=== PATIENT | male | born 1950 | race Caucasian/White ===

== ENCOUNTER 2024-12-17 14:12 | Inpatient (IN) ==
[2024-12-17 14:55] LABS: Basophils # (Auto) 0.01 K/mcL (0.00-0.30); Basophils % (Auto) 0.1 % (0.0-2.0); Eosinophils # (Auto) 0 K/mcL (0.00-0.70); Eosinophils % (Auto) 0 % (0.0-7.0); Hematocrit 36.5 % (40.1-51.0); Hemoglobin 12.1 g/dL (13.7-17.5); Lymphocytes # (Auto) 0.86 K/mcL (1.50-4.80); Mean Cell Volume 96.6 fL (80.0-100.0); Mean Corpuscular HGB Conc 33.2 g/dL (31.0-36.0); Monocytes # (Auto) 1.23 K/mcL (0.10-0.90); Neutrophils % (Auto) 82.7 % (38.0-78.0); Platelet Count 189 K/mcL (140-440); RBC 3.78 M/mcL (4.63-6.08); Red Cell Distribution Width 12.9 % (11.5-14.5); WBC 12.3 K/mcL (4.5-11.0)
[2024-12-17 15:20] LABS: Blood Urea Nitrogen 30 mg/dL (8-23); Calcium 9.9 mg/dL (8.6-10.4); Carbon Dioxide 23 mmol/L (22-30); Chloride 96 mmol/L (96-108); Glomerular Filtration Rate 45; Glucose 156 mg/dL (70-105); Sodium 133 mmol/L (133-145)
[2024-12-17] MEDS: DEXAMETHASONE 10 MG/ML VIAL IV ONE (15:30)
[2024-12-17] MEDS: IPRATROPIUM/ALBUTEROL 3 ML AMPUL.NEB NEB ONE (15:36)
[2024-12-17] MEDS: cefTRIAXone 1 GM VIAL IV ONE (16:15)
[2024-12-17] MEDS: AZITHROMYCIN 500 MG in 0.9 % SODIUM CHLORIDE 250 ML IV ONE (16:15)
[2024-12-17 18:24] LABS: Appearance,Urine Clear (Clear); Bacteria,Urine 0 /hpf (0); Bilirubin,Urine Negative (Negative); Color,Urine Yellow; Glucose,Urine (UA) Negative (Negative); Ketones,Urine Negative (Negative); Leukocyte Esterase,Urine Small /uL (Negative); Nitrate,Urine Negative (Negative); PH,Urine 5.5 (5.0-9.0); Protein,Urine 30 mg/dL (Negative); Urine Blood Small ery/mcL (Negative); Urine Hyaline Cast 26 /lph (0-2); Urine RBC 10 /hpf (0-3); Urine Squamous Epithelial Cell 0 /hpf (0-4); Urine WBC 3 /hpf (0-4); Urobilinogen,Urine Normal
[2024-12-17] MEDS ORDERED: SENNOSIDES 1 TABLET PO PRN (19:16)
[2024-12-17] MEDS ORDERED: POLYETHYLENE GLYCOL 3350 17 GM PACKET PO PRN (19:16)
[2024-12-17] MEDS ORDERED: MAG HYDROX/AL HYDROX/SIMETH 30 ML ORAL.SUSP PO PRN (19:16)
[2024-12-17] MEDS ORDERED: ONDANSETRON 4 MG/2 ML VIAL IV PRN (19:16)
[2024-12-17] MEDS: IPRATROPIUM/ALBUTEROL 3 ML AMPUL.NEB NEB SCH (20:10)
[2024-12-17] MEDS: LACTATED RINGERS 1,000 ML IV SCH (20:32)
[2024-12-17] MEDS: ENOXAPARIN 40 MG/0.4 ML SYRINGE SQ SCH (20:32)
[2024-12-17] MEDS: MELATONIN 3 MG TABLET PO SCH (20:32)
[2024-12-17] MEDS: 0.9 % SODIUM CHLORIDE 10 ML SYRINGE IV SCH (20:33)
[2024-12-17] MEDS: DOXYCYCLINE 100 MG in DEXTROSE 5% IN WATER 100 ML IV SCH (20:33)
[2024-12-17] MEDS: REMDESIVIR 200 MG in 0.9 % SODIUM CHLORIDE 250 ML IV SCH (21:51)
[2024-12-18 06:20] LABS: Basophils # (Auto) 0 K/mcL (0.00-0.30); Basophils % (Auto) 0 % (0.0-2.0); Eosinophils # (Auto) 0 K/mcL (0.00-0.70); Eosinophils % (Auto) 0 % (0.0-7.0); Hematocrit 36.3 % (40.1-51.0); Lymphocytes # (Auto) 0.56 K/mcL (1.50-4.80); Mean Cell Volume 97.6 fL (80.0-100.0); Mean Corpuscular HGB Conc 33.1 g/dL (31.0-36.0); Mean Platelet Volume 10.4 fL (8.8-12.5); Monocytes % (Auto) 6.5 % (1.0-12.0); Neutrophils % (Auto) 87.4 % (38.0-78.0); Platelet Count 176 K/mcL (140-440); RBC 3.72 M/mcL (4.63-6.08); Red Cell Distribution Width 12.8 % (11.5-14.5); WBC 9.3 K/mcL (4.5-11.0)
[2024-12-18 06:56] LABS: ALT/SGPT 10 U/L (<40); AST/SGOT 14 U/L (<40); Albumin 3.4 gm/dL (3.2-5.2); Albumin/Globulin Ratio 1.2 (1.0-2.3); Alkaline Phosphatase 74 U/L (39-117); Bilirubin,Direct < 0.2 mg/dL (0-0.3); Bilirubin,Total 0.3 mg/dL (0.1-1.0); Blood Urea Nitrogen 28 mg/dL (8-23); Carbon Dioxide 23 mmol/L (22-30); Chloride 101 mmol/L (96-108); Globulin 2.9 gm/dL (2.2-3.7); Glomerular Filtration Rate 73; Glucose 151 mg/dL (70-105); Lactate Dehydrogenase 142 U/L (135-225); Potassium 3.9 mmol/L (3.3-5.1); Sodium 136 mmol/L (133-145); Triglycerides 66 mg/dL (<150); Uric Acid 4.9 mg/dL (2.5-8.0)
[2024-12-18] MEDS ORDERED: cefTRIAXone 1 GM VIAL IV SCH (09:00)
[2024-12-18] MEDS: DEXAMETHASONE 10 MG/ML VIAL IV SCH (10:11)
[2024-12-18] MEDS: cefTRIAXone 2 GM in DEXTROSE 5% IN WATER 50 ML IV SCH (11:59)
[2024-12-18] MEDS ORDERED: traZODone HCL 100 MG TABLET PO PRN (15:14)
[2024-12-18] MEDS: REMDESIVIR 100 MG in 0.9 % SODIUM CHLORIDE 250 ML IV SCH (15:41)
[2024-12-18] MEDS ORDERED: FAMOTIDINE 20 MG TABLET PO PRN (18:24)
[2024-12-18] MEDS ORDERED: HYDROcodone/APAP 5/325MG TABLET PO PRN (20:51)
[2024-12-18] MEDS: DORZOLAMIDE 2% OPHTH DROPS 10ML BOTTLE OU SCH (22:09)
[2024-12-18] MEDS: GABAPENTIN 300 MG CAPSULE PO SCH (22:09)
[2024-12-18] MEDS: DULoxetine 20 MG CAPSULE PO SCH (22:09)
[2024-12-19] MEDS: ACETAMINOPHEN 325 MG TABLET PO PRN (04:23)
[2024-12-19] MEDS: tiZANidine 4 MG TABLET PO PRN (05:34)
[2024-12-19 06:50] LABS: Basophils # (Auto) 0.01 K/mcL (0.00-0.30); Basophils % (Auto) 0.1 % (0.0-2.0); Eosinophils # (Auto) 0 K/mcL (0.00-0.70); Eosinophils % (Auto) 0 % (0.0-7.0); Hematocrit 35.7 % (40.1-51.0); Hemoglobin 12.1 g/dL (13.7-17.5); Lymphocytes # (Auto) 0.96 K/mcL (1.50-4.80); Mean Cell Volume 95.2 fL (80.0-100.0); Mean Corpuscular HGB Conc 33.9 g/dL (31.0-36.0); Mean Platelet Volume 10.9 fL (8.8-12.5); Monocytes # (Auto) 0.83 K/mcL (0.10-0.90); Neutrophils % (Auto) 86.2 % (38.0-78.0); Platelet Count 228 K/mcL (140-440); RBC 3.75 M/mcL (4.63-6.08); Red Cell Distribution Width 12.7 % (11.5-14.5); WBC 13.8 K/mcL (4.5-11.0)
[2024-12-19 07:28] LABS: C-Reactive Protein 9.51 mg/dL (0.03-0.80)
[2024-12-19 07:29] LABS: ALT/SGPT 12 U/L (<40); AST/SGOT 20 U/L (<40); Albumin 3.3 gm/dL (3.2-5.2); Albumin/Globulin Ratio 1.2 (1.0-2.3); Alkaline Phosphatase 72 U/L (39-117); Bilirubin,Direct < 0.2 mg/dL (0-0.3); Bilirubin,Total 0.2 mg/dL (0.1-1.0); Blood Urea Nitrogen 26 mg/dL (8-23); Calcium 10.2 mg/dL (8.6-10.4); Carbon Dioxide 22 mmol/L (22-30); Chloride 103 mmol/L (96-108); Globulin 2.8 gm/dL (2.2-3.7); Glomerular Filtration Rate 87; Glucose 164 mg/dL (70-105); Lactate Dehydrogenase 158 U/L (135-225); Phosphorous 2.2 mg/dL (2.5-4.5); Potassium 3.8 mmol/L (3.3-5.1); Sodium 137 mmol/L (133-145); Triglycerides 59 mg/dL (<150); Uric Acid 4.5 mg/dL (2.5-8.0)
[2024-12-19] MEDS: OMEPRAZOLE 20 MG CAPSULE PO SCH (08:14)
[2024-12-19] MEDS ORDERED: BUPRENORPHINE HCL 300 MCG PO SCH (09:00)
[2024-12-19] MEDS: ASPIRIN 81 MG TAB.CHEW PO SCH (09:54)
[2024-12-19] MEDS: VITAMIN B COMPLEX 1 CAPSULE PO SCH (09:54)
[2024-12-19] MEDS: VITAMIN D3 125 MCG TABLET PO SCH (09:55)
[2024-12-19] MEDS: MAGNESIUM OXIDE 400 MG TABLET PO SCH (09:55)
[2024-12-19] MEDS: LISINOPRIL 5 MG TABLET PO SCH (09:55)
[2024-12-19] MEDS: ASCORBIC ACID 500 MG TABLET PO SCH (09:55)
[2024-12-19] MEDS: ATORVASTATIN 40 MG TABLET PO SCH (09:55)
[2024-12-19] MEDS: BRIMONIDINE OPHTH DROPS 1 GTT BOTTLE 5ML OU SCH (10:02)
[2024-12-19] MEDS: NEUTRA PHOS 1 PACKET PO SCH (10:06)
[2024-12-19] MEDS ORDERED: IPRATROPIUM/ALBUTEROL 3 ML AMPUL.NEB NEB PRN (13:52)
[2024-12-19] MEDS: IPRATROPIUM/ALBUTEROL 3 ML AMPUL.NEB NEB SCH (19:03)
[2024-12-20 06:59] LABS: Basophils # (Auto) 0.01 K/mcL (0.00-0.30); Basophils % (Auto) 0.1 % (0.0-2.0); Eosinophils # (Auto) 0.02 K/mcL (0.00-0.70); Eosinophils % (Auto) 0.2 % (0.0-7.0); Hemoglobin 12.8 g/dL (13.7-17.5); Lymphocytes # (Auto) 2.79 K/mcL (1.50-4.80); Lymphocytes % (Auto) 22.5 % (15.5-49.0); Mean Cell Volume 96.8 fL (80.0-100.0); Mean Corpuscular HGB Conc 32.8 g/dL (31.0-36.0); Mean Platelet Volume 10.1 fL (8.8-12.5); Monocytes # (Auto) 0.96 K/mcL (0.10-0.90); Monocytes % (Auto) 7.7 % (1.0-12.0); Neutrophils % (Auto) 67.7 % (38.0-78.0); Platelet Count 329 K/mcL (140-440); RBC 4.03 M/mcL (4.63-6.08); Red Cell Distribution Width 12.9 % (11.5-14.5); WBC 12.4 K/mcL (4.5-11.0)
[2024-12-20 07:03] LABS: ALT/SGPT 22 U/L (<40); AST/SGOT 34 U/L (<40); Albumin 3.6 gm/dL (3.2-5.2); Albumin/Globulin Ratio 1.4 (1.0-2.3); Alkaline Phosphatase 89 U/L (39-117); Bilirubin,Direct < 0.2 mg/dL (0-0.3); Bilirubin,Total 0.2 mg/dL (0.1-1.0); Blood Urea Nitrogen 24 mg/dL (8-23); Calcium 10.3 mg/dL (8.6-10.4); Carbon Dioxide 25 mmol/L (22-30); Chloride 102 mmol/L (96-108); Globulin 2.6 gm/dL (2.2-3.7); Glomerular Filtration Rate 83; Glucose 91 mg/dL (70-105); Lactate Dehydrogenase 194 U/L (135-225); Phosphorous 3.4 mg/dL (2.5-4.5); Potassium 3.9 mmol/L (3.3-5.1); Sodium 139 mmol/L (133-145); Triglycerides 67 mg/dL (<150); Uric Acid 4.7 mg/dL (2.5-8.0)
[2024-12-20 07:34] VITALS: TEMP 97.2; O2SAT 95
[2024-12-20] MEDS: CEFDINIR 300 MG CAPSULE PO SCH (08:06)
[2024-12-20] MEDS: DOXYCYCLINE 100 MG in DEXTROSE 5% IN WATER 100 ML IV SCH (08:32)
[2024-12-20] MEDS ORDERED: DOXYCYCLINE HYCLATE 100 MG TABLET.ORL PO SCH (21:00)
== END 2024-12-20 11:31 | disposition home or self-care (01) | DRG 871 ==
LOC: ED 14:12 → MEDSUR 19:05
PROVIDERS: ADMIT Student in an Organized Health Care Education/Training Program; ATTEND Student in an Organized Health Care Education/Training Program